=== PATIENT | female | born 1955 | race Caucasian/White ===

== ENCOUNTER → 2018-05-13 | Outpatient (CLI) | payer OTHER | END | disposition home or self-care (01) | LOC: CFH 10:06 | PROVIDERS: ATTEND Family Medicine | DX: R92.1 Mammographic calcification found on diagnostic imaging of breast (principal) | CPT/HCPCS: 77065 ==

== ENCOUNTER → 2018-06-05 | Outpatient (CLI) | payer OTHER ==
[~2018-06-05] MED LIST: LIDOCAINE 1%-EPI 1:100K, 20ML ONE
== END | disposition home or self-care (01) ==
LOC: CFH 08:06
PROVIDERS: ATTEND Surgery
DX: D05.11 Intraductal carcinoma in situ of right breast (principal)
CPT/HCPCS: 19281; J3490

== ENCOUNTER → 2018-07-03 | Outpatient (CLI) | payer OTHER ==
[~2018-07-03] MED LIST changes: +CHOL100011 PO; +FISH1CAP PO; -LIDOCAINE 1%-EPI 1:100K, 20ML ONE; +MULT-658 PO
== END | disposition home or self-care (01) ==
LOC: STAR 08:39
PROVIDERS: ATTEND Surgery
DX: Z01.818 Encounter for other preprocedural examination (principal); C50.411 Malignant neoplasm of upper-outer quadrant of right female breast
CPT/HCPCS: 93005

== ENCOUNTER 2018-07-09 07:41 | Day surgery (SDC) | payer OTHER ==
[~2018-07-09] VITALS: Ht 162.6 cm; Wt 63.5 kg
[2018-07-09] MEDS ORDERED: BUPIVACAINE/PF-EPI 0.5% 1:200K ONE ×2 (07:54→13:07)
[2018-07-09] MEDS ORDERED: ISOSULFAN BLUE 10 MG/ML, 5ML IV ONE (07:54)
[2018-07-09] MEDS ORDERED: LIDOCAINE/PF 1%, 30ML ONE (08:11)
[2018-07-09 09:12] VITALS: BP 133/85
[2018-07-09] MEDS ORDERED: ACETAMINOPHEN 500 MG TABLET PO ONE (09:30)
[2018-07-09] MEDS ORDERED: GABAPENTIN 300 MG CAPSULE PO ONE (09:30)
[2018-07-09] MEDS ORDERED: SCOPOLAMINE PATCH, 1.5MG PATCH.TD72 TD ONE (09:30)
[2018-07-09] MEDS ORDERED: ONDANSETRON ODT 8 MG PO ONE (09:30)
[2018-07-09] MEDS ORDERED: LACTATED RINGERS 1,000 ML IV SCH (09:39)
[2018-07-09] MEDS ORDERED: FENTANYL PF 250 MCG/5ML ONE (10:29)
[2018-07-09] MEDS ORDERED: MIDAZOLAM 1 MG/ML, 2ML ONE (10:29)
[2018-07-09] MEDS ORDERED: ONDANSETRON 2MG/ML, 2ML ONE ×2 (11:40→12:50)
[2018-07-09] MEDS ORDERED: PROPOFOL 10 MG/ML, 20ML ONE (11:40)
[2018-07-09] MEDS ORDERED: CEFAZOLIN 1,000 MG ONE (11:48)
[2018-07-09] MEDS ORDERED: DEXAMETHASONE 4 MG/ML, 1ML ONE (11:49)
[2018-07-09] MEDS ORDERED: ONDANSETRON 2MG/ML, 2ML IV PRN (12:30)
[2018-07-09] MEDS ORDERED: hydrALAzine 20 MG/ML, 1ML IV PRN (12:30)
[2018-07-09] MEDS ORDERED: HYDROmorphone 1 MG/ML, 1ML IV PRN (12:30)
[2018-07-09] MEDS ORDERED: MEPERIDINE/PF 25MG/0.5ML IVPush PRN (12:30)
[2018-07-09] MEDS ORDERED: LABETALOL 5MG/ML, 20ML IV PRN (12:30)
[2018-07-09] MEDS ORDERED: PROMETHAZINE 12.5 MG SUPP PR PRN (12:30)
[2018-07-09] MEDS ORDERED: OXYcodone 5 MG/5 ML ORAL.SOL UDC PO PRN (12:30)
[2018-07-09] MEDS ORDERED: FENTANYL PF 100 MCG/2ML ONE (13:47)
[2018-07-09] MEDS ORDERED: OXYcodone 5 MG/5 ML ORAL.SOL UDC ONE (13:47)
[2018-07-09] MEDS: FENTANYL PF 100 MCG/2ML IV PRN ×2 (13:50→14:06)
== END 2018-07-09 16:05 | disposition home or self-care (01) ==
LOC: OUT 07:41 → EDSTATUS 10:00 → OUT 16:05
PROVIDERS: ATTEND Surgery
DX: C50.411 Malignant neoplasm of upper-outer quadrant of right female breast (principal); N64.89 Other specified disorders of breast; R59.1 Generalized enlarged lymph nodes; F41.9 Anxiety disorder, unspecified
CPT/HCPCS: 19301; 19316; 38525; 38792; 88307; 88331; A9541; C1729; C9898; J0690; J1100; J2250; J2405; J2704; J3010; J7120; Q0162; J3490

== ENCOUNTER → 2018-07-24 | Outpatient (CLI) | payer OTHER | END | disposition home or self-care (01) | LOC: ROC 12:49 | PROVIDERS: ATTEND Radiology Radiation Oncology | DX: N63.11 Unspecified lump in the right breast, upper outer quadrant (principal) | CPT/HCPCS: 99214; G0463 ==

== ENCOUNTER 2018-10-01 07:13 | Outpatient (CLI) | payer OTHER | END 2018-10-01 23:59 | disposition home or self-care (01) | LOC: ROC 07:13 | PROVIDERS: ATTEND Radiology Radiation Oncology | DX: C50.411 Malignant neoplasm of upper-outer quadrant of right female breast (principal) | CPT/HCPCS: 99213; G0463 ==

== ENCOUNTER 2019-05-07 10:09 | Outpatient (CLI) | payer OTHER | END 2019-05-07 23:59 | disposition home or self-care (01) | LOC: CFH 10:09 | PROVIDERS: ATTEND Radiology Radiation Oncology | DX: C50.411 Malignant neoplasm of upper-outer quadrant of right female breast (principal); N64.89 Other specified disorders of breast | CPT/HCPCS: 77066; G0279 ==

== ENCOUNTER → 2020-04-27 | Outpatient (CLI) | payer OTHER | END | disposition home or self-care (01) | LOC: CFH 07:41 | PROVIDERS: ATTEND Family Medicine | DX: Z12.31 Encounter for screening mammogram for malignant neoplasm of breast (principal); Z13.820 Encounter for screening for osteoporosis; Z00.00 Encounter for general adult medical examination without abnormal findings; D05.11 Intraductal carcinoma in situ of right breast; E55.9 Vitamin D deficiency, unspecified; M81.0 Age-related osteoporosis without current pathological fracture | CPT/HCPCS: 77063; 77067; 77080 ==